=== PATIENT | male | born 1990 | race Caucasian/White ===

== ENCOUNTER 2025-05-18 10:28 | Outpatient (AMB) | payer OTHER, SELFPAY ==
--- NOTE | 2025-05-18 11:01 | MHC.OFFWIV ---
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 - The sore throat began approximately on Sunday, with the patient noticing white spots on the throat, which were later not visible during examination. - The patient reports feeling feverish at night and experiencing a mild headache. - A COVID test was performed and returned negative at home. - The patient also reports a mild cough and ear pressure, but no vomiting or significant ear pain. - He has been eating and drinking well. - He denies CP, SOB, abd pain, n/v/d, rashes or lesions. Physical Exam General: Cooperative, healthy appearing, comfortable and no acute distress Orientation/consciousness: Patient oriented x3 Limitations: No limitations Head: Normal to inspection Ears: Hearing grossly normal bilaterally, external ears normal and TM's normal bilaterally. A little bit of pressure noted. Nose: Normal external nose present, normal nares present, and no nasal discharge present. Face and sinus: Sinuses nontender to palpation. Mouth: Normal oral and palatal mucosa present and moist mucous membranes noted. Throat: Tonsils normal. Uvula is midline. Posterior oropharynx with erythema and no exudates. Throat appears really red. Eyes: Appearance normal, both eyes and all related structures Neck: Normal visual inspection, full ROM. No lymphadenopathy noted. Respiratory: Clear to auscultation bilaterally. Normal respiratory effort, able to speak in complete sentences. No respiratory distress, not tachypneic, no tripod positioning and no use of accessory muscles. Cardiovascular: Regular rate and rhythm. Normal S1 and S2 Skin: No rashes or lesions noted Patient was informed and verbally consented to the use of an ambient scribe for clinic note documentation during this visit Review of Systems Const All systems reviewed & are unremarkable except as noted in HPI and below Physical Exam Vital Signs: Last Vital Signs Temp 98.1 F 05/18/25 11:02 Pulse 81 05/18/25 11:02 BP 118/76 05/18/25 11:02 Pulse Ox 98 05/18/25 11:02 Oxygen Delivery Method Room Air 05/18/25 11:02 BMI result Body Mass Index 23.7 Results AMB Rapid Strep AMB Rapid Strep Negative Last Edit by Jamison Maciel CMA on 05/18/25 11:35 Results Reviewed Results Reviewed: Laboratory Last Values Strep Scn Rapid Clinic Negative 05/18/25 11:13 Assessment & Plan Assessment & Plan (1) Sore throat: Code(s): J02.9 - Acute pharyngitis, unspecified Plan Most likely strep vs viral rapid strep in the office is negative Plan - Drink lots of fluids and diet as tolerated - Amoxicillin BID for 10 days - Perform a throat culture to confirm the presence of bacterial infection despite negative rapid strep test. - Monitor symptoms and consider symptomatic treatment for pharyngitis, including hydration and analgesics. - VSS, pt well appearing Orders: Orders AMB Rapid Strep Screen Today Z13.9 - Encounter for screening, unspecified Throat Culture Today J02.9 - Acute pharyngitis, unspecified Medications: New amoxicillin 500 mg PO Q12H 20 tabs 0RF 10 days Coding Level of Care Code Est Pt Level 3 (69186) Diagnoses Sore throat J02.9
[2025-05-18 11:02] VITALS: BP 118/76; PULSE 81; TEMP 36.7; O2SAT 98; BMI 23.7
--- OUTSIDE RECORDS SUMMARY | 2025-05-18 11:10 | XMS_ITS | Clinical Summary ---
Author Organization [facility] Address [address] [place] [id number] Phone Care Team Providers Care Merchandising Internship Name Role Phone Letitia Erwin MD Primary Care Provider [phone] Immunizations Immunization Administration Dates Next Due DTP 04/20/1997, 3,1992,04/19,1992 Hep B, ped/adol 12/18/1997,07/08/1997,04/20/1997 Hib (PRP-T) 04/20/1997, 2,1992,02/17 IPV 07/20/1993,1992,1992 Influenza Split 10/06/1998,09/11/1996 Influenza, injectable, trivalent 10/29/2003,09/19,09/11/1996 MMR 04/20/1997,1992 Meningococcal Conj (Menactra) MCV4P 04/24/2007 OPV 04/20/1997 Td (adult) (MBL), 2 Lf tetan us toxoid, PF, adsorbed 01/12/1994 Varicella 03/04/1997 Family History Relation Name Status Comments Brother Alive Brother: Alive and well Father Alive Father: Alive a nd well Maternal Grandfather Materna l grandfather: Coronary artery disease, Mother Alive Mother: RSD Paternal Grandmother Paterna l grandmother: Cancer, lung Social History Tobacco Use Types Packs/Day Years Used Date Smoking Tobacco: Never Assessed Sex and Gender Information Value Date Recorded Sex Assigned at Not on file Legal Sex Male 4:26 PM EDT Gender Identity Not on file Sexual Orientation Not on file Plan of Treatment Health Maintenance Due Date Last Done Comments Varicella Vaccines (2 of 2 - 2-dose childhood series) 05/27/1997 03/04/1997 DTaP,Tdap,and Td Vaccines (6 - Tdap) 2003 04/20/1997, 01/12/1994, 07/20/1993, Additional history exists Influenza Vaccines (#1) 2024 10/29/20, 10/06/1998, 10/06/1998, Additional history exists COVID-19 Vaccine ( season) 2024 HIB Vaccines Aged Out 04/20/1997, 11/1991, 1992, Additional history exists No longer eligible based on patient's age to complete this topic IPV Vaccines Completed 04/20/1997, 11/1992, 1992, Additional history exists MMR Vaccines Completed 04/20/1997, 1992 Hepatitis B Vaccines Completed 12/18/1997, 07/08/1997, 04/20/1997 Meningococcal Vaccine Aged Out 04/24/2007 No kusum bryant eligible based on patient's age to complete this topic HPV Vaccines Aged Out No longer eligi ble based on patient's age to complete this topic Hepatitis A Vaccines Aged Out No long er eligible based on patient's age to complete this topic Men B Vaccine Aged Out No longer elig ible based on patient's age to complete this topic Pneumococcal Vaccine Aged Out No long er eligible based on patient's age to complete this topic Care Teams Merchandising Internship Relationship Specialty Start Date End Date Letitia Erwin MD [address] [place] [address] ABEL[place] Mend[place] [id number] PCP - General 06/29/17
== END 2025-05-18 11:44 | disposition home or self-care (01) ==
PROVIDERS: PCP Registered Nurse; Visit Provider Physician Assistant Medical
DX: Z13.9 Encounter for screening, unspecified (principal); J02.9 Acute pharyngitis, unspecified

== ENCOUNTER 2025-05-18 10:28 | Outpatient (REF) | payer OTHER, SELFPAY ==
--- OUTSIDE RECORDS SUMMARY | 2025-05-18 13:40 | XMS_ITS | Clinical Summary ---
Author Organization [facility] Address [address] [place] [id number] Phone Care Team Providers Care Pleat Patternmaker Name Role Phone Letitia Erwin MD Primary Care Provider [phone] Immunizations Immunization Administration Dates Next Due DTP [...] age to complete this topic Care Teams Pleat Patternmaker Relationship Specialty Start Date End Date Letitia Erwin MD [address] [place] [address] [place] [id number] PCP - General 06/29/17
== END 2025-05-18 10:29 | disposition home or self-care (01) ==
LOC: HO.LNP 10:28
PROVIDERS: PCP Registered Nurse; Visit Provider Physician Assistant Medical
DX: J02.9 Acute pharyngitis, unspecified (principal)
CPT/HCPCS: 87070; 87147; 87880